=== PATIENT | male | born 1985 | race Caucasian/White ===

== ENCOUNTER 2018-01-04 01:44 | Emergency (ER) | payer MEDICAID, OTHER ==
[~2018-01-04] VITALS: Ht 182.9 cm; Wt 70.3 kg
[~2018-01-04 01:44] MED LIST: HYDR-569 PO
[2018-01-04 02:01] VITALS: BP 114/67
[2018-01-04] MEDS ORDERED: ondansetron 4mg rapidly disintigrating tab PO ONE (02:10)
[2018-01-04] MEDS ORDERED: HYDROcodone/acetaminophen 5mg/325mg tablet PO ONE (02:10)
[2018-01-04] MEDS ORDERED: LIDOcaine 2% 10ml TOPICAL JELLY (Urojet) MM ONE (02:10)
== END 2018-01-04 02:25 | disposition home or self-care (01) ==
LOC: ER 01:45
DX: F11.10 Opioid abuse, uncomplicated (principal); F15.10 Other stimulant abuse, uncomplicated; Z56.0 Unemployment, unspecified; Z79.899 Other long term (current) drug therapy
CPT/HCPCS: 99281

== ENCOUNTER 2018-02-13 00:28 | Emergency (ER) | payer MEDICAID, OTHER ==
[~2018-02-13] VITALS: Ht 182.9 cm; Wt 81.8 kg
[2018-02-13 00:29] VITALS: BP 111/78
[2018-02-13] MEDS ORDERED: BUPR1FIL5 SL (19:02)
== END 2018-02-13 01:14 | disposition home or self-care (01) ==
LOC: ER 00:28
DX: Z02.89 Encounter for other administrative examinations (principal); F15.10 Other stimulant abuse, uncomplicated; F11.10 Opioid abuse, uncomplicated; L84 Corns and callosities; Z59.0 Homelessness; Z56.0 Unemployment, unspecified
CPT/HCPCS: 99281

== ENCOUNTER 2018-02-13 15:46 | Emergency (ER) | payer MEDICAID ==
[~2018-02-13] VITALS: Ht 180.3 cm; Wt 80.0 kg
[2018-02-13] MEDS ORDERED: buprenorphine/naloxone 2-0.5mg sublingual tablet SL STA ×2 (17:34→18:53)
[2018-02-13] MEDS ORDERED: BUPR1FIL5 SL (19:02)
[2018-02-13 19:39] VITALS: BP 120/61
== END 2018-02-13 19:40 | disposition home or self-care (01) ==
LOC: ER 15:47
DX: F11.23 Opioid dependence with withdrawal (principal); R45.1 Restlessness and agitation; R11.0 Nausea; F41.9 Anxiety disorder, unspecified; R10.84 Generalized abdominal pain; Z56.0 Unemployment, unspecified; Z79.899 Other long term (current) drug therapy
CPT/HCPCS: 99283

== ENCOUNTER 2022-11-18 10:25 | Emergency (ER) | payer MEDICAID, OTHER ==
[~2022-11-18] VITALS: Ht 182.9 cm; Wt 81.8 kg
[~2022-11-18 10:25] MED LIST changes: +BUPR1FIL5 SL; -HYDR-569 PO
[2022-11-18 10:31] VITALS: BP 123/65
[2022-11-18] MEDS ORDERED: LIDOcaine 1% 30ml preserv. free vial IJ ONE (10:55)
== END 2022-11-18 11:40 | disposition home or self-care (01) ==
LOC: ER 10:26
DX: S04.52XA Injury of facial nerve, left side, initial encounter (principal); Z79.899 Other long term (current) drug therapy; X58.XXXA Exposure to other specified factors, initial encounter; Y93.89 Activity, other specified; Y92.89 Other specified places as the place of occurrence of the external cause; Y99.8 Other external cause status
CPT/HCPCS: 12001; 99282; A6258; A6449